=== PATIENT | female | born 2000 | race Caucasian/White ===

== ENCOUNTER → 2024-09-08 11:12 | Outpatient (BNVA) | payer OTHER, SELFPAY | PROVIDERS: Visit Provider Nurse Practitioner Women's Health | DX: N91.2 Amenorrhea, unspecified (principal); Z32.01 Encounter for pregnancy test, result positive | CPT/HCPCS: 81025; 84702; 85025; 86850; 86900 ==

== ENCOUNTER → 2024-09-23 08:40 | Outpatient (BNVA) | payer OTHER, SELFPAY | PROVIDERS: Visit Provider Nurse Practitioner Women's Health | DX: Z34.91 Encounter for supervision of normal pregnancy, unspecified, first trimester (principal) | CPT/HCPCS: 76801 ==

== ENCOUNTER → 2024-10-06 08:56 | Outpatient (BNVA) | payer OTHER, SELFPAY | PROVIDERS: Visit Provider Nurse Practitioner Women's Health | DX: Z34.91 Encounter for supervision of normal pregnancy, unspecified, first trimester (principal) | CPT/HCPCS: 80307; 84315; 84443; 85025; 86592; 86762; 86803; 86850; 86900; 87086; 87340; 87491; 87591; 87661; 87806 ==

== ENCOUNTER → 2024-10-27 14:16 | Outpatient (BNVA) | payer OTHER, SELFPAY | PROVIDERS: Visit Provider Obstetrics & Gynecology | DX: Z34.80 Encounter for supervision of other normal pregnancy, unspecified trimester (principal) | CPT/HCPCS: 84315; 87624 ==

== ENCOUNTER 2024-11-11 22:44 | Emergency (ER) | payer OTHER, SELFPAY ==
[2024-11-11 22:51] VITALS: BP 126/83; PULSE 90; RESP 18; TEMP 37.4; O2SAT 98
--- NOTE | 2024-11-11 23:15 | ED_ITS ---
HPI - Chest Pain General: Chief Complaint: Abdominal Pain Stated Complaint: Preg\Pain on Left Side Time Seen by Provider: 11/11/24 22:53 History of Present Illness: Patient is well-appearing 24-year-old female who is seen for left-sided rib pain. She states that during vigorous activity, her had placed his hand on her lower back and during this vigorous activity she started have pain where his hand was. There was no intent to harm her. Since that time, she has had 3 of 10 pain at rest and 6 of 10 pain with motion. The pain is sharp and localized to the left posterior 10th rib in the posterior axillary line with radiation around the rib to the front side with certain motions. She denies shortness of breath, nausea, vomiting, abdominal pain, dysuria, frequency, and has not had increased contractions. She has no other acute complaints. Related Data Home Medications ?Medication ?Instructions ?Recorded ?Confirmed docosahexaenoic acid 200 mg mg PO 09/08/24 10/27/24 capsule ( DHA) Allergies Allergy/AdvReac Type Severity Reaction Status Date / Time No Known Allergies Allergy Verified 11/11/24 22:56 PFSH ED PFSH: Family History Mother Ovarian cancer Sister Diabetes Grandmother Hypertension Stroke Denies family history of Colon cancer Heart disease Breast cancer Uterine cancer Thyroid disease Social History Smoking and tobacco/nicotine status: former use of tobacco/nicotine Female Reproductive History: Date of last menstrual period: 07/24/24 Physical Exam Const: COMMON NORMALS: no acute distress, patient oriented x3 and alert HENMT: COMMON NORMALS: normocephalic and atraumatic HEAD & SCALP: normocephalic and atraumatic Eye: COMMON NORMALS: Equal, round and reactive pupils present, EOMs intact bilaterally and no scleral icterus PUPIL: Yes Equal, round and reactive pupils present Chest: OTHER: Point tenderness with palpation of the left 10th rib in the posterior axillary line. No overlying erythema, warmth, bruising, or deformity. Pain is also ex istent to a lesser degree in the mid axillary and anterior axillary lines along the 10th rib. Pain appears to be muscularly mediated and is worse with right side bending and rotation of the thorax to the right. Resp: COMMON NORMALS: normal respiratory effort and No retractions Cardio: COMMON NORMALS: regular rate, regular rhythm and No murmurs present (Cardio) RATE: regular rate RHYTHM: regular rhythm GI: COMMON NORMALS: Normal to inspection, nondistended, normoactive bowel sounds present, Soft to palpation and non-tender PALPATION: Yes Soft to palpation OTHER: Abdomen is appropriately gravid Neuro: COMMON NORMALS: patient oriented x3 SENSORIUM/ORIENTATION: Yes alert Skin: COMMON NORMALS: no rashes or lesions noted GENERAL SKIN EXAM: no rashes or lesions noted Course Vital Signs: Vital signs: Vital Signs Temperature 99.3 F 11/11/24 22:51 Pulse Rate 90 11/11/24 22:51 Respiratory Rate 18 11/11/24 22:51 Blood Pressure 126/83 11/11/24 22:51 Pulse Oximetry 98 11/11/24 22:51 Oxygen Delivery Me thod Room Air 11/11/24 22:51 MDM - Chest Pain Medical Decision Making In summary, patient is a generally well-appearing 24-year-old female who is with her first which appears to be going well. She presents with pain which on exam seems most likely to be muscularly mediated. Pain is reproducible both with palpation and with specific motions. I advised that she continue taking Tylenol which has helped the pain in the past. I also advised that she avoid motions which cause sharp pain which could reinjure the muscle, possibly extending the time it takes to heal. She will be discharged in stable condition with follow-up to ENGINEERING ADMINISTRATOR as needed. No radiology studies performed this visit Discharge Plan Discharge Patient Disposition: Clinical Impression: Intercostal muscle strain Discharge Diet: Usual diet Discharge Activity: Increase activity as tolerated Coding Level of Care Code ED Bed Bug Exterminator for Reg Murguia
[2024-11-12 00:22] VITALS: BP 118/65; PULSE 75; RESP 17; O2SAT 100
== END 2024-11-12 00:22 | disposition home or self-care (01) ==
PROVIDERS: Emergency Provider Student in an Organized Health Care Education/Training Program
DX: S29.011A Strain of muscle and tendon of front wall of thorax, initial encounter (principal); Z87.891 Personal history of nicotine dependence; X58.XXXA Exposure to other specified factors, initial encounter
CPT/HCPCS: 99282

== ENCOUNTER → 2024-11-13 11:14 | Outpatient (BNVA) | payer OTHER, SELFPAY | PROVIDERS: Visit Provider Nurse Practitioner Women's Health | DX: Z34.92 Encounter for supervision of normal pregnancy, unspecified, second trimester (principal) | CPT/HCPCS: 82105; 84315 ==

== ENCOUNTER → 2024-12-11 14:26 | Outpatient (BNVA) | payer OTHER, SELFPAY | PROVIDERS: Visit Provider Obstetrics & Gynecology | DX: Z36.9 Encounter for antenatal screening, unspecified (principal) | CPT/HCPCS: 76805 ==

== ENCOUNTER → 2024-12-18 10:23 | Outpatient (BNVA) | payer OTHER, SELFPAY | PROVIDERS: Visit Provider Obstetrics & Gynecology | DX: Z34.90 Encounter for supervision of normal pregnancy, unspecified, unspecified trimester (principal) | CPT/HCPCS: 84315 ==

== ENCOUNTER → 2025-01-12 11:22 | Outpatient (BNVA) | payer OTHER, SELFPAY | PROVIDERS: Visit Provider Nurse Practitioner Women's Health | DX: Z34.90 Encounter for supervision of normal pregnancy, unspecified, unspecified trimester (principal) | CPT/HCPCS: 84315 ==

== ENCOUNTER → 2025-02-09 13:24 | Outpatient (BNVA) | payer OTHER, SELFPAY | PROVIDERS: Visit Provider Obstetrics & Gynecology | DX: Z34.90 Encounter for supervision of normal pregnancy, unspecified, unspecified trimester (principal) | CPT/HCPCS: 82950; 84315; 85025 ==

== ENCOUNTER → 2025-02-24 10:47 | Outpatient (BNVA) | payer OTHER, SELFPAY | PROVIDERS: Visit Provider Nurse Practitioner Women's Health | DX: Z34.83 Encounter for supervision of other normal pregnancy, third trimester (principal) | CPT/HCPCS: 84315 ==

== ENCOUNTER → 2025-03-09 08:15 | Outpatient (BNVA) | payer OTHER, SELFPAY | PROVIDERS: Visit Provider Nurse Practitioner Women's Health | DX: Z34.90 Encounter for supervision of normal pregnancy, unspecified, unspecified trimester (principal) | CPT/HCPCS: 84315; 87077; 87086; 87184 ==

== ENCOUNTER → 2025-03-23 12:30 | Outpatient (BNVA) | payer OTHER, SELFPAY | PROVIDERS: Visit Provider Nurse Practitioner Women's Health | DX: Z36.4 Encounter for antenatal screening for fetal growth retardation (principal); Z34.90 Encounter for supervision of normal pregnancy, unspecified, unspecified trimester; Z3A.35 35 weeks gestation of pregnancy | CPT/HCPCS: 76816; 84315; 87086 ==

== ENCOUNTER → 2025-04-06 10:58 | Outpatient (BNVA) | payer OTHER, SELFPAY | PROVIDERS: Visit Provider Obstetrics & Gynecology | DX: Z34.90 Encounter for supervision of normal pregnancy, unspecified, unspecified trimester (principal) | CPT/HCPCS: 84315 ==

== ENCOUNTER → 2025-04-16 10:00 | Outpatient (BNVA) | payer OTHER, SELFPAY | PROVIDERS: Visit Provider Obstetrics & Gynecology | DX: Z34.90 Encounter for supervision of normal pregnancy, unspecified, unspecified trimester (principal) | CPT/HCPCS: 84315 ==

== ENCOUNTER 2025-04-21 21:20 | Outpatient (CLI) | payer OTHER, SELFPAY ==
[2025-04-21 21:39] VITALS: BP 145/97; PULSE 88
[2025-04-21 21:40] VITALS: RESP 17; BMI 41.5
[2025-04-21 21:55] VITALS: BP 132/77; PULSE 89
[2025-04-21 22:09] VITALS: BP 110/68; PULSE 79
[2025-04-21 22:24] VITALS: BP 109/70; PULSE 90
[2025-04-21 22:27] LABS: Hematocrit 35.6 % (36-47); Hemoglobin 12.10 g/dL (11.27-16.99); Mean Corpuscular HGB Conc 34.0 g/dL (30-55); Mean Corpuscular Hemoglobin 31.6 pg (27-33); Mean Corpuscular Volume 93.0 fl (85-98); Nucleated Red Blood Cells % 0 %; Platelet Count 182 10^3/cmm (157-399); Red Blood Count 3.83 10^6/uL (3.85-5.65); White Blood Count 5.69 10^3/uL (3.29-11.43)
[2025-04-21 22:39] VITALS: BP 109/70; PULSE 90; RESP 15
[2025-04-21 22:42] LABS: Add Urine Microscopic? YES; Glucose Urine UA Negative (Normal); Nitrate Urine Negative (Negative); Specific Gravity, Urine 1.015 (1.005-1.030)
[2025-04-21 23:05] LABS: Alanine Aminotransferase 21 U/L (0-33); Albumin Level 3.5 g/dL (3.5-5.2); Alkaline Phosphatase 145 U/L (35-105); Anion Gap 15.8 (5-19); Aspartate Amino Transferase 23 U/L (0-32); Blood Urea Nitrogen 6 mg/dL (6-20); Calcium 9.0 mg/dL (8.5-10.5); Carbon Dioxide 23 mmol/L (22-29); Chloride 103 mmol/L (98-107); Creatinine Clr Calc Pharmacy 272.3798; Globulin 3.2 g/dL (1.3-4.6); Glucose 88 mg/dL (65-115); Osmolality Calculated 283 mOsm/kg (285-295); Potassium 3.8 mmol/L (3.5-5.1); Sodium 138 mmol/L (136-145); Total Protein 6.7 g/dL (6.6-8.7); Uric Acid 4.3 mg/dL (2.4-5.7)
[2025-04-21 23:09] LABS: UPRO/UCREAT Ratio 0.13 mg/mg CR
== END 2025-04-21 22:39 | disposition home or self-care (01) ==
LOC: OPOB 21:24 → OBGYN 21:25
PROVIDERS: Visit Provider Obstetrics & Gynecology
DX: O36.8190 Decreased fetal movements, unspecified trimester, not applicable or unspecified (principal); Z3A.00 Weeks of gestation of pregnancy not specified; R10.9 Unspecified abdominal pain
CPT/HCPCS: 59025; 80053; 81001; 82570; 84156; 84315; 84550; 85025; 99211

== ENCOUNTER → 2025-04-27 11:00 | Outpatient (BNVA) | payer OTHER, SELFPAY | PROVIDERS: Visit Provider Nurse Practitioner Women's Health | DX: O99.820 Streptococcus B carrier state complicating pregnancy (principal) | CPT/HCPCS: 84315 ==

== ENCOUNTER → 2025-05-06 10:22 | Outpatient (BNVA) | payer OTHER, SELFPAY | PROVIDERS: Visit Provider Obstetrics & Gynecology | DX: O09.893 Supervision of other high risk pregnancies, third trimester (principal); Z3A.40 40 weeks gestation of pregnancy; O99.820 Streptococcus B carrier state complicating pregnancy; N89.8 Other specified noninflammatory disorders of vagina; R51.9 Headache, unspecified | CPT/HCPCS: 84315 ==

== ENCOUNTER 2025-05-07 00:01 | Inpatient (IN) | payer OTHER, SELFPAY ==
[2025-05-06] VITALS (23 sets, daily range): BP systolic 95–142; BP diastolic 50–90; PULSE 77–121; BMI 42.0
[2025-05-06 11:45] LABS: Hematocrit 36.0 % (36-47); Hemoglobin 12.20 g/dL (11.27-16.99); Mean Corpuscular HGB Conc 33.9 g/dL (30-55); Mean Corpuscular Hemoglobin 31.0 pg (27-33); Mean Corpuscular Volume 91.4 fl (85-98); Nucleated Red Blood Cells % 0 %; Platelet Count 177 10^3/cmm (157-399); Red Blood Count 3.94 10^6/uL (3.85-5.65); White Blood Count 5.68 10^3/uL (3.29-11.43)
[2025-05-06] MEDS: ACETAMINOPHEN 500 MG 1 EACH PO (20:41)
[2025-05-06] MEDS: oxytocin 30 UNIT/500 ML BAG IV (23:00)
[2025-05-07] VITALS (124 sets, daily range): BP systolic 64–171; BP diastolic 37–128; PULSE 62–155; RESP 15–18; TEMP 36.2–36.9; O2SAT 92–98
[2025-05-07] MEDS: penicillin g potassium 5,000,000 UNIT in sodium chloride 0.9% (plus) 100 ML 100 UNIT IV (02:50)
[2025-05-07] MEDS: fentaNYL 50 mcg/mL INJ 2mL IVP (02:53)
[2025-05-07] MEDS: ROPivacaine premix 200 MG/100 ML PREMIX 13 MG EPIDURAL ×2 (05:39→10:37)
--- NOTE | 2025-05-07 05:42 | P.ANESASSM_ITS ---
Pre-Anesthetic Assessment Height/Weight: Height 1.65 m Weight 114.759 kg Pulse Resp BP Pulse Ox O2 Del Method 100 18 109/56 92 Room Air 05/07/25 05:39 05/07/25 02:53 05/07/25 05:39 05/07/25 05:35 05/06/25 11:12 Epidural Familial anesthetic complications: None Was Beta Uma taken within 24 hours: N/A Was Clonidine taken within 24 hours: N/A Last intake: 1999 Social No alcohol and No tobacco Exam alert, oriented x 3, clear to auscultation bilaterally and regular rate & rhythm Airway Submandibular: within normal limits Cervical ROM: within normal limits Mallampati: Class III Dentition: full History/ROS No significant history except as noted and No significant complaints Pulmonary None reported CV/HEM None reported None reported Hepatic None reported GI None reported Metabolic Morbid Obesity [facility] [place] None reported Neuropsych None reported Anesthetic Plan ASA status: 3 Anesthesia: Anesthesia Evaluation, General and Regional (specify below) (Epidural) Risk of > 500 ml blood loss (7ml/kg in children): Yes, adequate IV access and fluids planned Medications/Allergies Home Medications ?Medication ?Instructions ?Recorded ?Confirmed ?Last Taken ?Type docosahexaenoic acid 200 mg mg PO 09/08/24 05/06/25 Un known History capsule ( DHA) famotidine 20 mg tablet (Pepcid AC) 20 mg PO DAILY 03/2305/06/25 Unknown History acetaminophen 325 mg tablet 325 mg PO QID PRN 04/21/25 05/06/25 Unknown History (Tylenol) Allergies Allergy/AdvReac Type Severity Reaction Status Date / Time No Known Allergies Allergy Verified 05/06/25 10:05 Current Medications Generic Name Dose Route Start Last Admin Trade Name Freq PRN Reason Stop Dose Admin Calcium Carbonate 1,000 mg 05/06/25 11:31 05/07/25 00:46 Calcium Carbonate 500 Mg Chew Tablet PO 1,000 mg Q4H PRN Administration Heartburn/Indigestion (Use 1st) Fentanyl 25 - 100 mcg 05/07/25 02:32 05/07/25 02:53 Fentanyl 50 Mcg/Ml Inj 2ml IVP 25 mcg Q1H PRN Administration SEVERE PAIN Dextrose/Lactated Ringer's 1,000 mls @ 125 mls/hr 05/06/25 11:45 05/07/25 05:19 Dextrose 5%-Lactated Ringers IV 125 mls/hr .Q8H JULISSA Infusion Oxytocin 30 unit in 500 mls @ 1 mls/hr 05/06/25 21:45 05/07/25 04:15 Pitocin IV 17 milliunit/min .Q24H JULISSA 17 mls/hr Protocol Titration 1 MILLIUNIT/MIN Ropivacaine 200 mg in 100 mls @ 10 mls/hr 05/07/25 04:00 05/07/25 05:39 Naropin Premix EPIDURAL 13 mls/hr .Q10H JULISSA Administration Sodium Chloride 1,000 mls @ 999 mls/hr 05/07/25 03:56 05/07/25 05:19 Sodium Chloride 0.9% IV Infused .Q1H1M PRN Infusion See label comments Misoprostol 25 mcg 05/06/25 11:46 05/06/25 12:01 Misoprostol 100 Mcg Tablet VAGINAL 25 mcg Q4H PRN Administration iol Non-Formulary 1 each 05/06/25 20:22 05/06/25 20:41 Medication (Extra- PO 1 each Strength Tylenol Q6H PRN Administration 500mg Capsules) Pain PFSH Anesthesia Medical History No pertinent past medical history Surgical History History of hand surgery Family History Mother Ovarian cancer Sister Diabetes Grandmother Hypertension Stroke Denies family history of Colon cancer Heart disease Breast cancer Uterine cancer Thyroid disease Social History Smoking and tobacco/nicotine status: never used tobacco/nicotine Female Reproductive History : 2 Data Anesthesia 05/06/25 11:31 Short CBC 05/06/25 Range/Units 11:31 WBC 5.68 (3.29-11.43) 10^3/uL Hgb 12.20 (11.27-16.99) g/dL Hct 36.0 (36-47) % MCV 91.4 (85-98) fl Plt Count 177 (157-399) 10^3/cmm Neut % (Auto) 71.7 % Neut # (Auto) 4.07 (1.8-7.7) 10^3/uL Blood Bank 05/06/25 11:31 Blood Type A Positive Rho(D) Type Rh positive Antibody Screen Negative
--- NOTE | 2025-05-07 05:49 | P.ANES_ITS ---
Anesthesia Procedures Procedure/Date: 05/07/25 Epidural: Time Out Performed: Yes Consents Signed: Procedure Consent and NPO Consent Consent: requested by attending/covering physician, from patient, risks and benefits reviewed and patient agrees to proceed Lumbar Level: L3-L4 Epidural position: sitting Epidural procedure: sterile prep of area (betadine), 1% lidocaine to numb the area (3 mLs), neg for paresthesia, test dose given, 1.5% xylocaine 1:200k epi (3 mL/2 mL), 0.2% Ropivacaine bolus ml (5 mLs), placed PCEA, no systemic response, sterile dressing applied, L.U.D. no apparent complications and 0.2% Ropiavacaine @ mls/hr (11 mLs/hr) Additional Comments: Attempt 2. ROXANNA 9cm, catheter threaded to 15cm. Patient tolerated well. FLIGHT FOLLOWER button education given and in reach. BP dropped after bolus. 100mcg paul given IV. BP restored to baseline.
[2025-05-07] MEDS: PENICILLIN G POTASSIUM 2,500,000 UNIT/50 ML BAG 50 UNIT IV ×3 (06:54→15:10)
--- NOTE | 2025-05-07 08:24 | PC.NURSE ---
pitocin had been d/c prior to 7am shift starting. this RN restarted pitocin at 2mU at [address] Szymanski. MAR does not reflect when pm shift d/c the pitocin.
[2025-05-07] MEDS: ondansetron 2 mg/ML SDV 2 mL 4 MG IVP (15:28)
--- NOTE | 2025-05-07 19:25 | PM.DELIVERY ---
Delivery Note: Date of delivery: May 07, 2025 Pre-delivery diagnoses: 40 w 6 d induction of labor GBS colonization Post-delivery diagnoses: 40 w 6 d induction of labor GBS colonization Procedure: induction of labor antibiotic therapy vaginal delivery repair of second-degree perineal laceration Op report anesthesia: Epidural Delivering Physician: Kings Szymanski MD Estimated blood loss (mL): 300 Findings: , vigorous infant Cord gases and blood obtained Normal placenta and cord Second-degree perineal laceration repaired EBL: 300 cc No complications Pre-Delivery Course: normal labor course fetus reassuring throughout Delivery: vaginal Post-Delivery Status: good History History History 2 Term 0 0 Miscarriages/Ectopic 1 Living Children 0 A&P Assessment and plan 1. Vaginal delivery: PDMP PDMP Reviewed: Not Reviewed Coding Level of Care Code Acute Code for Chg Fwd Diagnoses Vaginal delivery O80
[2025-05-07] MEDS: HYDROcodone-acetaminophen 5-325 mg Tablet PO (22:58)
[2025-05-08 00:11] VITALS: BP 125/75; PULSE 106
[2025-05-08 02:42] VITALS: BP 132/82; PULSE 111
[2025-05-08] MEDS: PRENATAL VIT NO.130/IRON/FOLIC 1 EACH TABLET PO (05:23)
[2025-05-08 05:32] VITALS: BP 127/83; PULSE 103; TEMP 36.6
[2025-05-08 07:01] LABS: Hematocrit 34.8 % (36-47); Hemoglobin 11.80 g/dL (11.27-16.99); Mean Corpuscular HGB Conc 33.9 g/dL (30-55); Mean Corpuscular Hemoglobin 31.1 pg (27-33); Mean Corpuscular Volume 91.8 fl (85-98); Platelet Count 162 10^3/cmm (157-399); Red Blood Count 3.79 10^6/uL (3.85-5.65); White Blood Count 12.81 10^3/uL (3.29-11.43)
--- NOTE | 2025-05-08 08:10 | ANE.PACU2 ---
Inpatient post-anesthesia follow up: Airway intact: Yes Vital signs: Temperature 98.0 F Pulse Rate 64 Respiratory Rate 15 Blood Pressure 124/64 Pulse Oximetry 99 Oxygen Delivery Me thod Room Air Oxygen Flow Rate Fraction of Inspir ed Oxygen Hydration adequate: Yes Nausea and vomiting: No Pain level: 1 Mental status: Baseline Epidural Start/End: Epidural Start Date: 05/07/25 Epidural Start Time: 05:16 Epidural End Date: 05/07/25 Epidural End Time: 20:10
[2025-05-08 10:00] VITALS: BP 121/74; PULSE 76; TEMP 36.9
--- NOTE | 2025-05-08 14:05 | P.PN_ITS ---
BEHAVIORAL HEALTH PROFESSIONAL Subjective 2 Subjective: Interval history: no c/o no headaches, dizziness, nausea, abdominal pain, bleeding normal lochia mild perineal pain, relieved with pain meds eating, voiding, ambulating well Labor: Station: 0 Amniotic Membrane Status: Ruptured Monitor Mode: Palpation Contraction Pattern: Irregular Status: Category I Vitals/I&O/Wt Last Vital Signs Temp 98.0 F 05/09/25 16:20 Pulse 64 05/09/25 16:20 Resp 15 05/09/25 16:20 BP 124/64 05/09/25 16:20 Pulse Ox 99 05/09/25 16:20 O2 Del Method Room Air 05/08/25 16:00 Physical Exam 2 Narrative: afebrile, VS normal comfortable, awake, alert Abd: soft, nontender. fundus firm Ext: no edema; nontender Urinary Catheter Management: Retana Latex: Cath Placed During This Visit: yes, but has since been removed by the nurse Reason for Continuing Indwelling Catheter: Other Urinary Catheter Date of Insertion: 05/07/25 Urinary Catheter Time of Insertion: 07:55 Date Urinary Catheter Removed: 05/07/25 Time Urinary Catheter Discontinued: 17:45 Data 05/08/25 06:56 A&P Assessment and plan 1. Vaginal delivery: PPD #1 and repair of second-degree perineal laceration doing well normal course continue care PDMP PDMP Reviewed: Not Reviewed Attestations 2 Medical Necessity Statement*: patient s/p vaginal delivery, plan care Coding Level of Care Code Acute Code for Chg Fwd Diagnoses Vaginal delivery O80
[2025-05-08 16:00] VITALS: BP 115/72; PULSE 97; RESP 16; TEMP 36.9
[2025-05-08 21:00] VITALS: BP 135/89; PULSE 108; RESP 16; TEMP 36.5
[2025-05-08] MEDS: HYDROcodone-acetaminophen 5-325 mg Tablet PO (22:05)
[2025-05-09 04:00] VITALS: BP 132/85; PULSE 79; RESP 16; TEMP 36.6
[2025-05-09] MEDS: PRENATAL VIT NO.130/IRON/FOLIC 1 EACH TABLET PO (04:43)
--- NOTE | 2025-05-09 12:35 | PM.OBGYDC ---
Discharge Providers COMMERCIAL PRINT SALESMAN Date of Admission: 05/07/25 00:01 Date of Discharge: 05/09/25 Attending Provider at Admission: Kings Szymanski MD Attending Provider at Discharge: Kings Szymanski MD Consults: none Primary COMMERCIAL PRINT SALESMAN: Kings Szymanski MD Diagnoses at Discharge Discharge Diagnosis 1. Vaginal delivery: Details from hospital stay: 24 y.o. A1 [facility] April 30, 2025 no complications admitted for induction of labor patient progressed to complete dilatation fetus was reassuring throughout patient delivered vaginally without any complications She had repair of a second-degree perineal laceration Patient did well and was discharged to home on the second day Reason for Visit Reason for Visit: IOL Postdates Brief History: 24 y.o. A1 [facility] April 30, 2025 no complications admitted for induction of labor Hospital Course Hospital Course 24 y.o. A1 [facility] April 30, 2025 no complications admitted for induction of labor patient progressed to complete dilatation fetus was reassuring throughout patient delivered vaginally without any complications She had repair of a second-degree perineal laceration Patient did well and was discharged to home on the second day Information Peripartum Data: Delivery Method: Vaginal Laceration description: Perineal - 2nd Degree Episiotomy description: None complications: none Physical Exam Narrative: afebrile, VS normal comfortable, awake, alert Lungs: clear Cor: RRR Abd: soft, nontender. fundus firm Ext: no edema; nontender PP Hgb 11.8 Urinary Catheter Management: Retana Latex: Cath Placed During This Visit: yes, but has since been removed by the nurse Reason for Continuing Indwelling Catheter: Other Urinary Catheter Date of Insertion: 05/07/25 Urinary Catheter Time of Insertion: 07:55 Date Urinary Catheter Removed: 05/07/25 Time Urinary Catheter Discontinued: 17:45 History History History 2 Term 0 0 Miscarriages/Ectopic 1 Living Children 0 Discharge Data Studies Completed and Pending Laboratory Results WBC 12.81 10^3/uL (3.29-11.43) H 05/08/25 06:56 RBC 3.79 10^6/uL (3.85-5.65) L 05/08/25 06:56 Hgb 11.80 g/dL (11.27-16.99) 05/08/25 06:56 Hct 34.8 % (36-47) L 05/08/25 06:56 MCV 91.8 fl (85-98) 05/08/25 06:56 MCH 31.1 pg (27-33) 05/08/25 06:56 MCHC 33.9 g/dL (30-55) 05/08/25 06:56 RDW 13.8 % (12.1-15.1) 05/08/25 06:56 Plt Count 162 10^3/cmm (157-399) 05/08/25 06:56 MPV 10.4 fL (7.4-10.4) 05/08/25 06:56 Neut % (Auto) 71.7 % 05/06/25 11:31 Lymph % (Auto) 18.1 % 05/06/25 11:31 [place] % (Auto) 8.3 % 05/06/25 11:31 Eos % (Auto) 0.9 % 05/06/25 11: Baso % (Auto) 0.5 % 05/06/25 11:31 Neut # (Auto) 4.07 10^3/uL (1.8-7.7) 05/06/25 11:31 Lymph # (Auto) 1.0 10^3/uL (0.8-4.8) 05/06/25 11:31 [place] # (Auto) 0.5 10^3/uL (0.2-0.9) 05/06/25 11:31 Eos # (Auto) 0.1 10^3/uL (0.0-0.8) 05/06/25 11:31 Baso # (Auto) 0.0 10^3/uL (0.0-0.1) 05/06/25 11:31 Nucleated RBC % (auto) 0 % 05/06/25 11: Nucleated RBCs # 0.0 /100WBC 05/06/25 11:31 Blood Type A Positive 05/06/25 11: Rho(D) Type Rh positive 05/06/25 11: Antibody Screen Negative 05/06/25 11:31 Procedures Performed induction of labor vaginal delivery Vitals Last Vital Signs Temp 98.0 F 05/09/25 16:20 Pulse 64 05/09/25 16:20 Resp 15 05/09/25 16:20 BP 124/64 05/09/25 16:20 Pulse Ox 99 05/09/25 16:20 O2 Del Method Room Air 05/08/25 16:00 Results Labs OB ([facility]): Obstetrics US 03/23/25 Blood Type A Positive 05/06/25 Antibody Screen Negative 05/06/25 Hct, (36-47) 41.6 % 05/18/25 Hgb, (11.27-16.99) 13.70 g/dL 05/18/25 Rho(D) Type Rh positive 05/06/25 Plt Count, (157-399) 348 10^3/cmm 05/18/25 Hep Bs Antigen, (Nonreactive) Non-reactive 10/06/24 Hepatitis C Antibody, (Nonreactive) Non-reactive 10/06/24 Rubella IgG Antibody, (0.0-10.0) > 500.0 IU/mL H 10/06/24 RPR, (Nonreactive) Nonreactive 10/06/24 HIV 1&2 Ab & HIV 1 Ag, (Non-Reactiv) Non-reactive 10/06/24 TSH, (0.27-4.20) 1.42 uIU/mL 10/06/24 Glucose 1 Hr 50 gm, (85-140) 92 mg/dL 02/09/25 Uric Acid, (2.4-5.7) 4.3 mg/dL 04/21/25 Ser , Semi-Qnt < 1.00 mIU/mL 05/18/25 HCG, Qual, (Negative) Positive H 09/08/24 Urine Opiates Screen, (Negative) Negative ng/mL 10/06/24 Ur Barbiturates Screen, (Negative) Negative ng/mL 10/06/24 Ur Phencyclidine Scrn, (Negative) Negative ng/mL 10/06/24 Ur Amphetamines Screen, (Negative) Negative ng/mL 10/06/24 U Benzodiazepines Scrn, (Negative) Negative ng/mL 10/06/24 Urine Cocaine Screen, (Negative) Negative ng/mL 10/06/24 U Marijuana (THC) Screen, (Negative) Negative ng/mL 10/06/24 Micro Urine Specimen 03/23/25 Pap Smear Interpret See note 10/27/24 Discharge Plan Discharge Patient Disposition: Home Condition: Stable Prescriptions: Continued DHA 200 mg capsule PO famotidine [Pepcid AC] 20 mg tablet 20 mg PO DAILY acetaminophen [Tylenol] 325 mg tablet 325 mg PO QID PRN Discharge Order = DC NOW: Discharge Order (Routine); Ordered 05/09/25 Ordered By: Kings Szymanski Referrals: Kings Szymanski MD [Physician, COMMERCIAL PRINT SALESMAN] Referral Note: [facility] call [facility] @ on Sunday to schedule your appointment. Patient Instructions: Depression (DC), Bleeding (DC), Opioid Safety (DC), Preeclampsia and Eclampsia After Delivery (GEN), Hemorrhage (DC), OB Discharge Report, OB Food/Drug Interaction Guide, OB Care at Home, Opioid Safety, OB Vaginal Deliveries - [facility], Patient Portal & Rosangela Instructions Discharge Attestations COMMERCIAL PRINT SALESMAN Time Spent in Discharge Care*: less than 30 min Coding Level of Care Code Acute Code for Chg Fwd Diagnoses Vaginal delivery O80
[2025-05-09] MEDS: FLU VACC TS2025-26(6MOS UP)/PF 45 MCG/0.5 ML SYRINGE IM (14:38)
[2025-05-09 16:20] VITALS: BP 124/64; PULSE 64; RESP 15; TEMP 36.7; O2SAT 99
== END 2025-05-09 15:45 | disposition home or self-care (01) | DRG 807 ==
LOC: OPOB 00:02 → OBGYN 00:02
PROVIDERS: Admitting Provider Obstetrics & Gynecology; Visit Provider Obstetrics & Gynecology
DX: O48.0 Post-term pregnancy (principal); Z37.0 Single live birth; Z3A.40 40 weeks gestation of pregnancy; O99.824 Streptococcus B carrier state complicating childbirth; O99.214 Obesity complicating childbirth; E66.01 Morbid (severe) obesity due to excess calories; O70.1 Second degree perineal laceration during delivery
CPT/HCPCS: 36415; 51702; 59025; 59409; 85025; 85027; 86850; 86900; 90656; 99211; J2405; J2540; J2590; J2795; J3010; J7030; J7121; J9999; Q0163

== ENCOUNTER 2025-05-18 15:46 | Emergency (ER) | payer OTHER, SELFPAY ==
[2025-05-18 15:59] VITALS: BP 114/75; PULSE 82; RESP 17; TEMP 36.6; O2SAT 98; BMI 36.6
--- NOTE | 2025-05-18 16:13 | USR_ITS ---
PROCEDURE INFORMATION: Exam: US Pelvis, Transvaginal, Non-Obstetric Exam date and time: 05/18/2025 4:31 PM Age: 24 years old Clinical indication: Post bleeding TECHNIQUE: Imaging protocol: Real-time transvaginal pelvic (non-obstetric) ultrasound with image documentation. Transvaginal imaging was used for better evaluation of the endometrium, adnexa, and/or cervix. COMPARISON: [place] [id number] 03/23/2025 12:48 PM FINDINGS: Uterus: Endometrium is thickened, measuring up to 1.3 cm with heterogeneous sonographic appearance, including multiple echogenic nonshadowing foci. Endometrial myometrial interface is indistinct in areas. Limited Doppler images demonstrate no definite endometrial blood flow, however there is questionable blood flow near the endometrial myometrial interface. Right ovary/adnexa: Not well visualized. Left ovary/adnexa: Not well visualized. Urinary bladder: Limited views of the urinary bladder are unremarkable. Intraperitoneal space: No free fluid. US/US transvaginal [id number] IMPRESSION: Endometrium is thickened and heterogeneous, containing echogenic material with questionable vascularity near the endometrial myometrial junction. Findings are suspicious for retained products of conception in the appropriate clinical setting, though changes/clot could appear similar. Recommend clinical correlation.
--- NOTE | 2025-05-18 16:39 | ED_ITS ---
HPI - Female Genitourinary 2 General: Chief complaint: Vaginal Bleeding Stated complaint: 11days still bleeding Time Seen by Provider: 05/18/25 16:13 Source: patient Mode of arrival: ambulatory Limitations: no limitations History of Present Illness: Patient is a nice 24-year-old female who is approximate 11 days here for complaints of heavy vaginal bleeding. She states she had an uncomplicated vaginal delivery (apart from a second-degree perineal laceration) by Dr. Szymanski 11 days ago. Patient felt like her bleeding had slowly improved until today when she began having heavy vaginal bleeding with clot passage. Patient states she does feel fatigued and slightly lightheaded. She is ambulatory here back to her emergency department room. Vital signs are stable. Patient is not complaining of significant abdominal/pelvic pain. MD elicited complaint: vaginal bleeding Onset (ago): hour(s) Severity: moderate Vaginal discharge: none Vaginal bleeding: heavy and clots Exacerbating factors: none Relieving factors: none Associated symptoms: Reports no associated symptoms; Deny abdominal pain, headache(s) or nausea Treatment prior to arrival: none Patient : No Related Data : 2 Home Medications ?Medication ?Instructions ?Recorded ?Confirmed docosahexaenoic acid 200 mg mg PO 09/08/24 05/06/25 capsule ( DHA) famotidine 20 mg tablet (Pepcid AC) 20 mg PO DAILY 03/2305/06/25 acetaminophen 325 mg tablet 325 mg PO QID PRN 04/21/25 05/06/25 (Tylenol) Allergies Allergy/AdvReac Type Severity Reaction Status Date / Time No Known Allergies Allergy Verified 05/06/25 10:05 Review of Systems 2 Const: Denies: fever(s), chills, body aches, fatigue or malaise Card: Denies: chest pain Resp: Denies: dyspnea GI: Denies: abdominal pain, nausea, vomiting or change in bowel habits : Reports: vaginal bleeding; Denies: flank pain, dysuria, hematuria or pelvic pain Musc: Denies: neck pain, back pain, extremity pain, extremity swelling or joint swelling Neuro: Denies: headache(s) PFSH ED 2 PFSH: Medical History No pertinent past medical history Surgical History History of hand surgery Family History Mother Ovarian cancer Sister Diabetes Grandmother Hypertension Stroke Denies family history of Colon cancer Heart disease Breast cancer Uterine cancer Thyroid disease Social History Smoking and tobacco/nicotine status: never used tobacco/nicotine Female Reproductive History: : 2 Physical Exam 2 Const: COMMON NORMALS: no acute distress, average body habitus, no limitations, healthy appearing, alert and well nourished GENERAL APPEARANCE: cooperative Resp: COMMON NORMALS: normal respiratory effort and clear to auscultation bilaterally AUSCULTATION: clear to auscultation bilaterally Cardio: COMMON NORMALS: regular rate and regular rhythm RATE: regular rate RHYTHM: regular rhythm GI: COMMON NORMALS: Normal to inspection, nondistended, normoactive bowel sounds present, Soft to palpation, non-tender, No hepatosplenomegaly present and no masses PALPATION: Yes Soft to palpation and Yes No hepatosplenomegaly present : COMMON NORMALS: Yes no CVA tenderness BLADDER/KIDNEY EXAM: Yes no CVA tenderness OTHER: Dr. Szymanksi coming to perform pelvic exam Back/Pelvis: COMMON NORMALS: no CVA tenderness Extremity: GENERAL: Yes normal exam except as noted Neuro: ADONAY COMA SCALE: document GCS findings [place] coma scale eye opening: Spontaneous [place] coma scale verbal response: Orientated [place] coma scale motor response: Obey commands [place] coma scale total score: 15 COMMON NORMALS: moves all extremities, no focal motor deficits and no sensory deficits noted SENSORIUM/ORIENTATION: Yes alert Skin: COMMON NORMALS: no rashes or lesions noted GENERAL SKIN EXAM: no rashes or lesions noted Course 2 Consultations: Consultation #1: Dr. Szymanski-came and evaluated patient here in the emergency department and performed pelvic exam, he recommended administering 0.2 mg methergine here in ED and he will follow up with patient in clinic this week Vital Signs: Vital signs: Vital Signs Temperature 97.9 F 05/18/25 15:59 Pulse Rate 71 05/18/25 17:30 Respiratory Rate 16 05/18/25 17:30 Blood Pressure 121/85 05/18/25 17:30 Pulse Oximetry 99 05/18/25 17:30 Oxygen Delivery Me thod Room Air 05/18/25 16:43 MDM - Female Medical Decision Making Patient is a 24-year-old female who presented to the ED today with a complaint of heavy vaginal bleeding 11 days . Her vital signs are stable upon arrival. Her hemoglobin today is 13.7 up from 11.8 on 05/08. Her serum quant is undetectable. She was consulted on by her OB provider Dr. Szymanski here in the emergency department who feels comfortable allowing discharge. He will follow- up with her in clinic. Medical Records I reviewed the patient's medical records. Lab Data I reviewed the patient's lab results. 05/18/25 16:36 Radiology Impressions Transvaginal US 05/18/25 16:13 IMPRESSION: Endometrium is thickened and heterogeneous, containing echogenic material with questionable vascularity near the endometrial myometrial junction. Findings are suspicious for retained products of conception in the appropriate clinical setting, though changes/clot could appear similar. Recommend clinical correlation. Laboratory Results WBC 5.77 10^3/uL (3.29-11.43) 05/18/25 16:36 RBC 4.41 10^6/uL (3.85-5.65) 05/18/25 16:36 Hgb 13.70 g/dL (11.27-16.99) 05/18/25 16:36 Hct 41.6 % (36-47) 05/18/25 16:36 MCV 94.3 fl (85-98) 05/18/25 16:36 MCH 31.1 pg (27-33) 05/18/25 16:36 MCHC 32.9 g/dL (30-55) 05/18/25 16:36 RDW 13.0 % (12.1-15.1) 05/18/25 16:36 Plt Count 348 10^3/cmm (157-399) 05/18/25 16:36 MPV 9.2 fL (7.4-10.4) 05/18/25 16:36 Neut % (Auto) 54.2 % 05/18/25 16:36 Lymph % (Auto) 34.3 % 05/18/25 16:36 [place] % (Auto) 7.1 % 05/18/25 16:36 Eos % (Auto) 2.8 % 05/18/25 16:36 Baso % (Auto) 1.4 % 05/18/25 16:36 Neut # (Auto) 3.13 10^3/uL (1.8-7.7) 05/18/25 16:36 Lymph # (Auto) 2.0 10^3/uL (0.8-4.8) 05/18/25 16:36 [place] # (Auto) 0.4 10^3/uL (0.2-0.9) 05/18/25 16:36 Eos # (Auto) 0.2 10^3/uL (0.0-0.8) 05/18/25 16:36 Baso # (Auto) 0.1 10^3/uL (0.0-0.1) 05/18/25 16:36 Nucleated RBC % (auto) 0 % 05/18/25 16:36 Nucleated RBCs # 0.0 /100WBC 05/18/25 16:36 Ser , Semi-Qnt < 1.00 mIU/mL 05/18/25 16:36 XR interpretation done by ED provider, pending radiology final review Discharge Plan Discharge Patient Disposition: Home Clinical Impression: bleeding Qualifiers: hemorrhage type: unspecified Qualified Code(s): O72.1 - Other immediate hemorrhage Condition: Stable Prescriptions: No Action DHA 200 mg capsule PO famotidine [Pepcid AC] 20 mg tablet 20 mg PO DAILY acetaminophen [Tylenol] 325 mg tablet 325 mg PO QID PRN Discharge Orders: Discharge ED (Routine); Ordered 05/18/25 Ordered By: Joann Chan Patient Instructions: Bleeding (ED), Patient Portal & Rosangela Instructions Activity Restrictions/Additional Instructions: As we discussed, Dr. Szymanski would like to follow-up with you in clinic this week. You need to return to the emergency department for onset of worsening lightheadedness/dizziness, passing out episodes, fevers, severe abdominal or pelvic pain, generally feeling worse or unwell, or any other concerns you may have. Print Language: Cambodian Coding Level of Care Code ED [employer] for [facility]
[2025-05-18 16:43] VITALS: BP 116/79; PULSE 79; RESP 15; O2SAT 97
[2025-05-18 16:47] LABS: Hematocrit 41.6 % (36-47); Hemoglobin 13.70 g/dL (11.27-16.99); Mean Corpuscular HGB Conc 32.9 g/dL (30-55); Mean Corpuscular Hemoglobin 31.1 pg (27-33); Mean Corpuscular Volume 94.3 fl (85-98); Nucleated Red Blood Cells % 0 %; Platelet Count 348 10^3/cmm (157-399); Red Blood Count 4.41 10^6/uL (3.85-5.65); White Blood Count 5.77 10^3/uL (3.29-11.43)
[2025-05-18 17:00] VITALS: BP 111/70; RESP 16; O2SAT 97
[2025-05-18] MEDS: methylergonovine 0.2 mg/mL INJ 1 mL IM (17:27)
[2025-05-18 17:30] VITALS: BP 121/85; PULSE 71; RESP 16; O2SAT 99
== END 2025-05-18 17:38 | disposition home or self-care (01) ==
PROVIDERS: Emergency Provider Physician Assistant
DX: O72.1 Other immediate postpartum hemorrhage (principal)
CPT/HCPCS: 36415; 76830; 84702; 85025; 96372; 99284; J2210